=== PATIENT | female | born 1975 | race Caucasian/White ===

== ENCOUNTER → 2017-08-04 10:23 | Outpatient (CLI) | payer SELFPAY | PROVIDERS: Family Provider Internal Medicine Nephrology; PCP Internal Medicine Nephrology; Visit Provider Internal Medicine Nephrology | DX: R05 Cough (principal) ==

== ENCOUNTER → 2018-08-06 10:30 | Outpatient (CLI) | payer OTHER, MEDICARE, SELFPAY | PROVIDERS: Family Provider Student in an Organized Health Care Education/Training Program; PCP Student in an Organized Health Care Education/Training Program; Referring Provider Obstetrics & Gynecology; Visit Provider Obstetrics & Gynecology | DX: Z01.818 Encounter for other preprocedural examination (principal) ==

== ENCOUNTER 2018-08-30 08:07 | Day surgery (SDC) | payer OTHER, MEDICARE, SELFPAY ==
[2018-08-30] VITALS (7 sets, daily range): BP systolic 126–151; BP diastolic 68–116; PULSE 63–84; RESP 14–16; TEMP 36.1–36.4; O2SAT 95–100; BMI 37.7
[2018-08-30 08:45] LABS: Internal QC Validated? YES +Cl - CLEAR BKGD; Pregnancy, Urine Negative Negative
[2018-08-30 08:53] LABS: Hematocrit 38.8 % (37-47); Hemoglobin 12.2 g/dl (12.0-15.0); Mean Corp Hgb Conc 31.4 g/gl (32-36); Mean Corpuscular Hgb 29.9 pg (27.0-32.0); Mean Corpuscular Volume 95.1 fL (81-99); Mean Platelet Vol. 10.9 fl (6.2-12.0); Platelet Count 281 K/mm3 (150-450); RBC Distribution Width CV 13.1 % (11.6-14.6); Red Blood Count 4.08 M/mm3 (4.2-5.4); White Blood Count 5.1 K/mm3 (4.4-11.0)
[2018-08-30 08:55] LABS: Scan Indicated on CBC? Y/N NO
[2018-08-30 09:04] LABS: Creatinine, Serum 1.14 mg/dL (0.55-1.02); EST Glomerular Filtration Rate 55 mL/min (>60); Est Glom Filt Rate - Afr Amer 67 mL/min (>60); Estimated Creatinine Clearance 61.88 ml/min
--- NOTE | 2018-08-30 09:45 | EMB_PTH ---
PATIENT: BROOK CAVAZOS LOC: [facility] [place][id number] AGE/SX: 43/F ROOM: RE08/30/[address]: Dr. Celina Johnson DO : 1975 BED: DIS: 08/30/2018 SPEC #: [id number] RECD: 08/30/18 12:24 STATUS: MICHELLE VIDYA #: [id number] ERMELINDA: 08/30/18 09:[address]: Celina Johnson DEPT: SURGICAL PATHOLOGY RECD BY: Kevyn Cox ENTERED: 08/30/18 13:31 SP TYPE: ENDOM BX/C GALI DR: Dr. Anthony Obregon DO Tissues: A - Endometrium, NOS B - Uterus, NOS Procedures: Surgery Specimen Level IV HEADER OPERATION: Hysteroscopy, dilation and curettage, Mirena IUD placement PRE-OP DIAGNOSIS: Abnormal uterine bleeding TISSUE SUBMITTED: A - Endometrial curettings, B - Uterine polyp MICROSCOPIC DIAGNOSIS A. Endometrium, curettings: Polypoid fragments of disordered endometrium. B. Uterine polyp: Polypoid fragments of disordered endometrium. AM:jet 08/31/18 MICROSCOPIC DESCRIPTION Slides are reviewed. GROSS DESCRIPTION A - Received in fixative is one container labeled with the patient's name and designated endometrial curettings. The specimen consists of multiple fragments of pink hemorrhagic soft tissue that in aggregate measure 2.5 x 1 x 0.1 cm. The specimen is totally submitted in one cassette. B - Received in fixative is one container labeled with the patient's name and designated uterine polyp. The specimen consists of multiple fragments of dominguez-pink to hemorrhagic soft tissue that in aggregate measure 3 x 2.5 x 0.3 cm. The entire specimen is submitted in one cassette. / SJ:jet 08/30/18 TC:5 [facility]: [id number] x2
--- NOTE | 2018-08-30 12:06 | PCM.OPRPT ---
Problem List (1) Abnormal uterine bleeding (AUB) Status: Acute (2) Endometrial polyp Status: Acute Report of Operation Date of Procedure: 08/30/18 Pre-Operative Diagnosis: AUB, stenotic cervix Post-Operative Diagnosis: AUB, endometrial polyp Surgery/Procedure Performed:: Hysteroscopy, polypectomy using Symphion, D&C, Mirena IUD placement Description of Surgical Findings:: Uterine cavity with a small polyp noted on the posterior wall of the uterus near the fundus. Otherwise a normal cavity with thin appearing endometrium. Bilateral tubal ostia were visualized. No descent of uterus and cervix Type of Anesthesia:: MAC Specimen's removed: Endometrial curettings and an endometrial polyp Estimated Blood Loss (mL): < 10 cc Description of Procedure: The patient was taken to the operating room where she was prepped and draped in the usual sterile fashion under MAC anesthesia. After bimanual examination, the cervix was exposed with a weighted vaginal speculum and the anterior lip of the cervix grasped with a single tooth tenaculum. The uterus was sounded to a depth of 12 cm. The endocervical canal was then progressively dilated to accommodate the hysteroscope. The hysteroscope was then introduced into the uterine cavity using sterile saline solution as a distending media. The endometrial cavity was distended with fluids and the cavity visualized. A small polyp was noted. The coronal areas were visualized bilaterally with corresponding tubal ostia. The endometrium appeared thin. The hysteroscope was removed and exchanged for a Symphion hysteroscope. Using the Symphion device, the polyp was removed and a D&C was performed. The Symphion hysteroscope was then removed. A sharp curettage was then performed for a minimal amount of tissue. All instruments were removed from the vaginal The patient was sent to recovery room in good condition. - Complications None - Admit VTE Documentation VTE Present on Admission: No VTE Mechan Device Prophylaxis: SCD's
--- NOTE | 2018-08-30 12:07 | DCINST_ITS ---
Discharge Diet: No Restrictions Discharge Activity: Return to Normal Activity May resume sexual activity in: 1-2 weeks Weight Bearing Status: Full weight bearing Lifting Restrictions: None Call your doctor if you observe: Fever of 101 or Higher, Inability to urinate, Inability to have a bowel movement, Using more than one pad per hour, Shortness of breath, Dizziness, Fainting spells, Chest pain, Increased palpitations (irregular heartbeat), Calf discomfort, Uncontrolled pain Cleanse incision/area with: Soap & Water Allergies/Adverse Reactions: Allergies ketorolac [From Toradol] Allergy (Mild, Verified 08/28/18 08:40) NSAIDS (Non-Steroidal Anti-Inflamma Allergy (Mild, Verified 08/28/18 08:40) Medications to take at Discharge Biotin 1,000 mcg PO DAILY 07/09/18 Folic Acid/B Cmplx C/Rice Bran [Vitamin B-Complex & C Caplet] 1 each PO DAILY 07/09/18 Mycophenolate Mofetil [Cellcept] 750 mg PO BID 07/09/18 Prednisone 5 mg PO DAILY 07/09/18 Tacrolimus 5 mg PO BID 07/09/18 Ketoconazole [Nizoral] 100 mg PO DAILY 08/28/18 Primary Care Physician: Anthony Obregon DO [Primary Care Provider] - Test Results: Test results from this visit will be discussed in further detail at your follow- up appointment, if applicable. Please Follow Up With: Celina Johnson DO When: 1-2 weeks
[2018-08-30] MEDS: Acetaminophen 325 MG Tablet 650 MG PO (13:12)
== END 2018-08-30 13:56 | disposition home or self-care (01) ==
LOC: SDC 08:08 → AC 08:11
PROVIDERS: Family Provider Student in an Organized Health Care Education/Training Program; PCP Student in an Organized Health Care Education/Training Program; Referring Provider Obstetrics & Gynecology; Visit Provider Obstetrics & Gynecology
PROC: 0UDB8ZZ Extraction of Endometrium, Via Natural or Artificial Opening Endoscopic (ICD-10-PCS; CPT 58558; principal; 2018-08-30 09:35)
DX: N93.9 Abnormal uterine and vaginal bleeding, unspecified (principal); N92.1 Excessive and frequent menstruation with irregular cycle; N84.0 Polyp of corpus uteri; N88.2 Stricture and stenosis of cervix uteri; K21.9 Gastro-esophageal reflux disease without esophagitis; N18.4 Chronic kidney disease, stage 4 (severe); I12.9 Hypertensive chronic kidney disease with stage 1 through stage 4 chronic kidney disease, or unspecified chronic kidney disease; Z94.0 Kidney transplant status; Z79.52 Long term (current) use of systemic steroids
CPT/HCPCS: 58300; 58558; 36415; 81025; 82565; 85027; 86850; 86900; 88305; J7120; J2405

== ENCOUNTER 2020-10-27 15:01 | Emergency (ER) | payer MEDICARE, OTHER, SELFPAY ==
[2018-08-30 08:43] VITALS: BMI 37.7
[2020-10-27] VITALS (11 sets, daily range): BP systolic 97–131; BP diastolic 61–68; PULSE 61–104; RESP 15–24; TEMP 36.6–37.6; O2SAT 93–98; BMI 32.3
--- NOTE | 2020-10-27 15:14 | EKG12_ITS ---
Test Reason : Blood Pressure : / mmHG Vent. Rate : 101 BPM Atrial Rate : 101 BPM P-R Int : 132 ms QRS Dur : 086 ms QT Int : 322 ms P-R-T Axes : 070 -68 072 degrees QTc Int : 417 ms Sinus tachycardia Biatrial enlargement Left axis deviation Pulmonary disease pattern Abnormal ECG Confirmed by ANTOINETTE ISSA, PAVEL ([id number]), department editor BRYON CRANE ([id number]) on 10/30/2020 11:33:17 A M Referred By: BARI Confirmed By:YASMINE CURRY MD
--- NOTE | 2020-10-27 15:24 | EX.ED.DYSGE1 ---
HPI History of Present Illness Chief Complaint: Complaint Narrative Narrative: 45-year-old female presents with generalized weakness. States that yesterday evening she began feeling generalized weakness. Was diagnosed with a UTI by her primary care physician. They called in antibiotics which she has had 1 dose of. Patient had a kidney transplant at the age of 14 secondary to what sounds to be ureteral reflux. [facility] Medical History (Updated 10/27/20 @ 20:[address] Alpesh Tubbs DO) Chronic kidney disease Chronic renal failure syndrome Chronic renal insufficiency, stage IV (severe) Cough Hypertension Menorrhagia Obstipation Overweight Vitamin D deficiency Home Medications FA-B cmp,C-rice bran-ruel hips [Vitamin B-Complex & C Caplet] 1 ea PO DAILY 07/09/18 [History Last Taken Unknown] biotin 1,000 mcg PO DAILY 07/09/18 [History Last Taken Unknown] mycophenolate mofetil 750 mg PO BID 07/09/18 [History Last Taken 08/30/18 07:50 750 MG] prednisone 5 mg PO DAILY 07/09/18 [History Last Taken 08/30/18 07:50 5 MG] tacrolimus 5 mg PO BID 07/09/18 [History Last Taken 08/30/18 07:50 5 MG] ketoconazole 100 mg PO DAILY 08/28/18 [History Last Taken 08/30/18 07:50 100 MG] Allergy/AdvReac Type Severity Reaction Status Date / Time ketorolac [From Toradol] Allergy Mild Verified 10/27/20 15:05 NSAIDS (Non-Steroidal Allergy Mild Verified 10/27/20 15:05 Anti-Inflamma Family History (Updated 10/11/17 @ 13:23 by Doris Lobo) Grandmother Diabetes Grandfather Diabetes Father Cancer Cancer Mother COPD (chronic obstructive pulmonary disease) Surgical History History of 3 sections history of fistula placement Social History (Updated 10/11/17 @ 13:[address] Huan Verduzco DO) Smoking Status: Never smoker second hand exposure: No alcohol intake: current alcohol intake frequency: holidays/special occasions only substance use type: does not use caffeine: Yes what type of physical activity do you participate in: walking frequency: 1-2 times per week EXAM Physical Exam Const Vital Signs: 10/27/20 15:02 10/27/20 15:04 10/27/20 15:14 Temperature 98.5 F 98.5 F Temperature Source Temporal Temporal Pulse Rate 104 H 104 H 85 Respiratory Rate 15 15 24 H Respiratory Effort Blood Pressure 131/68 H 131/68 H Blood Pressure Mean 89 89 Pulse Ox 97 97 98 Oxygen Delivery Method Room Air Room Air Room Air 10/27/20 15:25 10/27/20 15:47 10/27/20 15:49 Temperature 99.5 F H Temperature Source Oral Pulse Rate Respiratory Rate Respiratory Effort Normal Non-Labored Blood Pressure Blood Pressure Mean Pulse Ox 98 Oxygen Delivery Method Room Air 10/27/20 16:04 10/27/20 16:14 10/27/20 17:05 Temperature 99.7 F H 99.7 F H 99.0 F Temperature Source Oral Oral Oral Pulse Rate 84 84 72 Respiratory Rate 22 H 19 H 16 Respiratory Effort Blood Pressure 97/63 97/63 124/61 H Blood Pressure Mean 74 74 82 Pulse Ox 95 95 93 Oxygen Delivery Method Room Air Room Air Room Air 10/27/20 18:00 10/27/20 19:04 10/27/20 21:00 Temperature 98.7 F 97.8 F Temperature Source Oral Temporal Pulse Rate 98 62 72 Respiratory Rate 18 16 16 Respiratory Effort Blood Pressure 108/62 118/66 110/68 Blood Pressure Mean 77 83 Pulse Ox 98 94 98 Oxygen Delivery Method Room Air Room Air MDM MDM MDM Narrative Medical decision making narrative: Patient appears well and nontoxic. Initially tachycardic and afebrile. Normotensive. Urine shows leukocytes without nitrites. 12,000 leukocytosis but otherwise lab work within normal limits and a creatinine which is at her baseline. Patient was given normal saline, Tylenol, Zofran. Feeling much improved. Chest x-ray interpreted by myself shows no evidence of infiltrate or cardiomegaly. Radiology concurs. CT without contrast was done given her history of transplant which is also negative. Spoke with Dr. Hernandez, transplant extractor operator solvent process at [facility] who is on-call for the patient's doctor. Extensive discussion was had about the patient if she feels that she is stable for discharge and should continue her antibiotic therapy. I did advise that she has any documented fevers at home and is not feeling improved to return for reevaluation. Patient is agreeable with this plan and discharged home in stable condition. Lab Data Attestation: I reviewed the patient's lab results. Labs: Laboratory Results - last 24 hr 10/27/20 10/27/20 10/27/20 15:45 15:50 15:50 WBC 12.1 H RBC 5.10 Hgb 15.2 H Hct 47.6 H MCV 93.3 MCH 29.8 MCHC 31.9 L RDW Std Deviation 43.3 RDW Coeff of Al 12.5 Plt Count TNP MPV 12.3 H Immature Gran % (Auto) 0.300 Neut % (Auto) 89.6 H Lymph % (Auto) 2.5 L [place] % (Auto) 7.1 Eos % (Auto) 0.2 Baso % (Auto) 0.3 Absolute Neuts (auto) 10.8 H Absolute Lymphs (auto) 0.30 L Nucleated RBC % 0 Differential Comment SCANNED Platelet Estimate ADEQUATE PT Cancelled INR Cancelled APTT Cancelled Sodium Potassium Chloride Carbon Dioxide Anion Gap BUN Creatinine Estim Creat Clear Calc Est GFR (MDRD) Af Amer Est GFR (MDRD) Non-Af BUN/Creatinine Ratio Glucose Lactic Acid Cancelled Calcium Total Bilirubin AST ALT Alkaline Phosphatase Total Protein Albumin Globulin Albumin/Globulin Ratio Urine Color Urine Clarity Urine pH Ur Specific [employer] [place] Urine Protein Urine Glucose (UA) Urine Ketones Urine Occult Blood Urine Nitrite Urine Bilirubin Urine Urobilinogen Ur Leukocyte Esterase Urine RBC Urine WBC Ur Squamous Epith Cells Urine Bacteria Urine Mucus 10/27/20 10/27/20 10/27/20 15:50 16:17 16:24 WBC RBC Hgb Hct MCV MCH MCHC RDW Std Deviation RDW Coeff of [place] Count MPV Immature Gran % (Auto) Neut % (Auto) Lymph % (Auto) [place] % (Auto) Eos % (Auto) Baso % (Auto) Absolute Neuts (auto) Absolute Lymphs (auto) Nucleated RBC % Differential Comment Platelet Estimate PT 13.7 INR 1.1 APTT 29.2 Sodium Cancelled Potassium Cancelled Chloride Cancelled Carbon Dioxide Cancelled Anion Gap Cancelled BUN Cancelled Creatinine Cancelled Estim Creat Clear Calc Cancelled Est GFR (MDRD) Af Amer Cancelled Est GFR (MDRD) Non-Af Cancelled BUN/Creatinine Ratio Cancelled Glucose Cancelled Lactic Acid Calcium Cancelled Total Bilirubin Cancelled AST Cancelled ALT Cancelled Alkaline Phosphatase Cancelled Total Protein Cancelled Albumin Cancelled Globulin Cancelled Albumin/Globulin Ratio Cancelled Urine Color Yellow Urine Clarity Clear Urine pH 7.0 Ur Specific [place] 1.005 Urine Protein 15 H Urine Glucose (UA) Normal Urine Ketones 15 H Urine Occult Blood 10 H Urine Nitrite Negative Urine Bilirubin Negative Urine Urobilinogen Normal Ur Leukocyte Esterase 500 H Urine RBC 0 SEEN Urine WBC 10-25 SEEN Ur Squamous Epith Cells 0-5 SEEN Urine Bacteria 0 SEEN Urine Mucus 0 SEEN 10/27/20 10/27/20 16:24 16:24 WBC RBC Hgb Hct MCV MCH MCHC RDW Std Deviation RDW Coeff of [place] Count MPV Immature Gran % (Auto) Neut % (Auto) Lymph % (Auto) [place] % (Auto) Eos % (Auto) Baso % (Auto) Absolute Neuts (auto) Absolute Lymphs (auto) Nucleated RBC % Differential Comment Platelet Estimate PT INR APTT Sodium 135 L Potassium 4.1 Chloride 108 H Carbon Dioxide 20.0 L Anion Gap 7 BUN 10 Creatinine 1.07 H Estim Creat Clear Calc 62.16 Est GFR (MDRD) Af Amer 71 Est GFR (MDRD) Non-Af 59 L BUN/Creatinine Ratio 9.3 L Glucose 104 Lactic Acid 0.9 Calcium 8.9 Total Bilirubin 0.60 AST 10 L ALT 14 Alkaline Phosphatase 56 Total Protein 6.5 Albumin 3.6 Globulin 2.9 Albumin/Globulin Ratio 1.2 Urine Color Urine Clarity Urine pH Ur Specific [employer] [place] Urine Protein Urine Glucose (UA) Urine Ketones Urine Occult Blood Urine Nitrite Urine Bilirubin Urine Urobilinogen Ur Leukocyte Esterase Urine RBC Urine WBC Ur Squamous Epith Cells Urine Bacteria Urine Mucus Radiography Chest X-Ray - ED: 1 View, Read by ED Physician, Read by Radiologist and Normal Diagnostic Testing: Radiology Impression Chest X-Ray 10/27/20 15:50 IMPRESSION: Normal x-ray examination of the chest. Electronically Signed: Jay Mondragon MD at 16:05 EDT , Service support , Abdomen/Pelvis CT 10/27/20 17:17 IMPRESSION: No definite acute abnormality. Severe bilateral renal atrophy. Grossly normal appearance of right lower quadrant renal transplant. Electronically Signed: Jay Mondragon MD at 18:27 EDT , Service support , Discharge Plan Triage Chief Complaint: Complaint ED Provider: Alpesh Tubsb Dx/Rx/DC Orders Clinical Impression: UTI (urinary tract infection) Instructions: ED Urinary Tract Infections in Women Prescriptions: No Action mycophenolate mofetil 250 MG capsule 750 mg PO BID RF: 0 prednisone 5 MG tablet 5 mg PO DAILY RF: 0 tacrolimus 1 MG capsule 5 mg PO BID RF: 0 FA-B cmp,C-rice bran-ruel hips [B-complex with vitamin C] 1 EACH tablet 1 ea PO DAILY RF: 0 biotin 1,000 MCG Tab.Chew 1,000 mcg PO DAILY RF: 0 ketoconazole 200 MG tablet 100 mg PO DAILY RF: 0 Primary Care Provider: Anthony Obregon Referrals: Anthony Obregon DO [Primary Care Provider] - 1 Day Activity Restrictions/Additional Instructions: Please return if feeling worse. Continue antibiotics. Disposition Disposition: Home, self care Discharge Date/Time: 10/27/20 21:00
[2020-10-27] MEDS: Acetaminophen 500 MG Tablet 1000 MG PO (15:42)
[2020-10-27] MEDS: 0.9% Normal Saline 1,000 ML 999 ML IV (15:42)
[2020-10-27] MEDS: Ondansetron 4 MG/2 ML Vial IV (15:43)
--- NOTE | 2020-10-27 15:49 | ED.RN ---
PT STATED SHE IS NOT SUPPOSED TO TAKE TYLENOL ACCORDING TO HER KIDNEY DOCTOR. DR CANDELARIA MADE AWARE AND HE SAID IT IS OKAY TO GIVE HER TYLENOL AT THIS TIME. TYLENOL GIVEN AT THIS TIME.
--- NOTE | 2020-10-27 15:50 | RAD_ITS ---
STUDY: X-RAY CHEST REASON FOR EXAM: Female, 45 years old. fever TECHNIQUE: Single AP portable view of the chest. COMPARISON: None. FINDINGS: The lungs are clear and expanded. There is no demonstrated pleural abnormality. Normal size heart. Normal mediastinum and beronica. Normal visualized pulmonary arteries. Normal visualized aortic arch and descending thoracic aorta. Normal visualized thoracic spine. Normal visualized ribs, clavicles, and shoulders. There is no demonstrated abnormality of the visualized soft tissue structures of the upper abdomen. RAD/Chest 1 View (Portable) IMPRESSION: Normal x-ray examination of the chest. Electronically Signed: Jay Mondragon MD at 16:05 EDT , Service support ,
[2020-10-27 16:02] LABS: Absolute Neutrophil Count 10.8 X10^3/uL (2.0-7.7); Basophil# 0.04 X10^3/uL; Basophil% 0.3 % (0-1); Eosinophil# 0.03 X10^3/uL; Eosinophils% 0.2 % (0-5); Hematocrit 47.6 % (37-47); Hemoglobin 15.2 g/dL (12.0-15.0); Lymphocyte % 2.5 % (19-41); Mean Corp Hgb Conc 31.9 g/dL (32-36); Mean Corpuscular Hgb 29.8 pg (27.0-32.0); Mean Corpuscular Volume 93.3 fL (81-99); Mean Platelet Vol. 12.3 fl (6.2-12.0); Monocyte# 0.86 X10^3/uL; Monocyte% 7.1 % (0-10); NRBC Flagged by Analyzer 0 % (0-5); Neutrophil # 10.78 X10^3/uL (2.7-7.7); Neutrophil % 89.6 % (47-70); POSITIVE COUNT YES; POSITIVE DIFFERENTIAL YES; RBC Distribution Width CV 12.5 % (11.6-14.6); RBC Distribution Width SD 43.3 fl (35.1-43.9); White Blood Count 12.1 K/mm3 (4.4-11.0)
[2020-10-27 16:23] LABS: Bacteria 0 SEEN /hpf (None Seen); Mucous, Urine 0 SEEN /hpf (<or=2+); Red Blood Cells-Urine 0 SEEN /hpf (0-5)
[2020-10-27 16:23] LABS: Differential Indicated SCAN CRITERIA MET
[2020-10-27 16:31] LABS: Color, Urine Yellow (Yellow); Glucose, Dipstick Normal (Normal); Ketone-Dipstick 15 mg/dl (Negative); Leukocyte Esterase-Dipstick 500 /ul (Negative); Nitrite-Dipstick Negative (Negative); Occult Blood-Urine 10 /ul (Negative); Protein-Dipstick 15 mg/dl (Negative); Specific Gravity, Urine 1.005 (1.002-1.030); Urine Bilirubin Dipstick Negative (Negative); Urine Clarity Clear (Clear); Urine Urobilinogen Normal (Normal)
[2020-10-27 16:37] LABS: Squamous Epithelial Cells - UA 0-5 SEEN /hpf (5-10); White Blood Cells 10-25 SEEN /hpf (0-5)
[2020-10-27 16:45] LABS: International Normalized Ratio 1.1; Prothrombin Time (Protime)PT. 13.7 SECONDS (11.7-14.9)
[2020-10-27 16:46] LABS: ALB/GLOB Ratio 1.2 RATIO (0.9-2.4); AST(SGOT) 10 U/L (15-37); Alanine Aminotransfer ALT/SGPT 14 U/L (13-56); Albumin, Serum 3.6 g/dL (3.2-5.0); Alkaline Phosphatase 56 U/L (45-117); Anion Gap 7 (5-15); BUN 10 mg/dL (7-18); BUN/Creat Ratio 9.3 RATIO (10-20); Calcium,Total 8.9 mg/dL (8.5-10.1); Chloride 108 mmol/L (98-107); Creatinine, Serum 1.07 mg/dL (0.55-1.02); EST Glomerular Filtration Rate 59 mL/min (>60); Est Glom Filt Rate - Afr Amer 71 mL/min (>60); Estimated Creatinine Clearance 62.16 ml/min; Globulin 2.9 g/dL (2.2-4.2); Glucose 104 mg/dL (74-106); Partial Thromboplast Time 29.2 Seconds (24.1-36.2); Potassium 4.1 mmol/L (3.5-5.1); Protein, Total 6.5 g/dL (6.4-8.2); Sodium Level 135 mmol/L (136-145)
[2020-10-27 16:49] LABS: Differential Comment SCANNED; Platelet Estimate ADEQUATE (ADEQ)
[2020-10-27 17:00] LABS: Lactic Acid 0.9 mmol/L (0.4-1.9)
--- NOTE | 2020-10-27 17:17 | CT_ITS ---
STUDY: CT ABDOMEN AND PELVIS WITHOUT CONTRAST REASON FOR EXAM: Female, 45 years old. abdominal pain RADIATION DOSAGE (If Supplied By Facility): CTDIvol = ( 12.73 ) mGy, DLP = ( 693.55 ) mGycm TECHNIQUE: Transaxial images were obtained from the dome of the diaphragm to the symphysis pubis without oral contrast, and without intravenous contrast. Sagittal and coronal images were reconstructed. Individualized dose optimization techniques were used for this CT. COMPARISON: None. FINDINGS: Limited views through the lower chest show subsegmental atelectasis or mild fibrotic changes in both lung bases worse on the left. Small pericardial effusion. Normal liver. Normal gallbladder and extrahepatic biliary system. Normal spleen. Normal pancreas. Normal bilateral adrenal glands. There is very severe bilateral renal atrophy. Evaluation of the GI tract is limited by absence of oral contrast. Cannot exclude stomach wall thickening. No dilated loops of bowel or evidence for obstruction. Cannot exclude segmental thickening of the oliver of the small or large bowel. Cannot exclude enteritis or colitis. Moderate diffuse fecal retention. There has been appendectomy. Normal abdominal aorta. Normal inferior vena cava. Normal retroperitoneum. Normal urinary bladder. Normal visualized uterus. IUD in normal position. Right lower quadrant renal transplant seen measuring approximately 13.7 cm, with normal cortical thickness and no hydronephrosis. Normal abdominal wall. Normal osseous structures. CT/Abdomen/Pelvis without Cont IMPRESSION: No definite acute abnormality. Severe bilateral renal atrophy. Grossly normal appearance of right lower quadrant renal transplant. Electronically Signed: Jay Mondragon MD at 18:27 EDT , Service support ,
== END 2020-10-27 21:00 | disposition home or self-care (01) ==
PROVIDERS: Emergency Provider Emergency Medicine; PCP Student in an Organized Health Care Education/Training Program
DX: N39.0 Urinary tract infection, site not specified (principal); I12.0 Hypertensive chronic kidney disease with stage 5 chronic kidney disease or end stage renal disease; N18.6 End stage renal disease; Z79.1 Long term (current) use of non-steroidal anti-inflammatories (NSAID); Z79.52 Long term (current) use of systemic steroids; Z94.0 Kidney transplant status
CPT/HCPCS: 71045; 74176; 80053; 81001; 83605; 85025; 85610; 85730; 87040; 87086; 87088; 87426; 93005; 96361; 96374; 99283; J7030; A4216; J2405

== ENCOUNTER 2024-05-11 22:39 | Emergency (ER) | payer BC, SELFPAY ==
[2024-05-11 22:39] VITALS: BP 164/90; PULSE 94; RESP 20; TEMP 37; O2SAT 97; BMI 37.0
[2024-05-11] MEDS: Ondansetron 4 MG/2 ML Vial IV (23:40)
[2024-05-11] MEDS: Morphine 4 MG/ML Syringe IV (23:40)
[2024-05-11 23:47] LABS: Absolute Lymphocyte Count 0.61 X10^3/uL (0.83-4.51); Basophil# 0.04 X10^3/uL; Basophil% 0.3 % (0-1); Eosinophil# 0.05 X10^3/uL; Eosinophils% 0.4 % (0-5); Hemoglobin 14.3 g/dL (12.0-15.0); Lymphocyte # 0.61 X10^3/ul (0.83-4.51); Lymphocyte % 5.2 % (19-41); Mean Corp Hgb Conc 31.8 g/dL (32-36); Mean Corpuscular Volume 94.5 fL (81-99); Mean Platelet Vol. 11.1 fl (6.2-12.0); Monocyte# 0.94 X10^3/uL; NRBC Flagged by Analyzer 0 % (0-5); Neutrophil % 85.8 % (47-70); Platelet Count 264 K/mm3 (150-450); RBC Distribution Width CV 13.2 % (11.6-14.6); RBC Distribution Width SD 45.6 fl (35.1-43.9); Red Blood Count 4.76 M/mm3 (4.2-5.4); White Blood Count 11.7 K/mm3 (4.4-11.0)
[2024-05-12 00:12] LABS: ALB/GLOB Ratio 1.3 RATIO (0.9-2.4); AST(SGOT) 7 U/L (15-37); Alanine Aminotransfer ALT/SGPT 15 U/L (13-56); Albumin, Serum 3.8 g/dL (3.2-5.0); Alkaline Phosphatase 73 U/L (45-117); Anion Gap 6 (5-15); BUN 8 mg/dL (7-18); BUN/Creat Ratio 7.8 RATIO (10-20); Calcium,Total 9.7 mg/dL (8.5-10.1); Chloride 110 mmol/L (98-107); Creatinine, Serum 1.02 mg/dL (0.55-1.02); EST Glomerular Filtration Rate 61 mL/min (>60); Est Glom Filt Rate - Afr Amer 74 mL/min (>60); Estimated Creatinine Clearance 84.17 ml/min; Glucose 121 mg/dL (74-106); Lipase 41 U/L (13-75); Potassium 3.7 mmol/L (3.5-5.1); Protein, Total 6.8 g/dL (6.4-8.2); Sodium Level 140 mmol/L (136-145)
[2024-05-12] MEDS: Pantoprazole Sodium 40 MG Tablet PO (00:14)
[2024-05-12 00:25] VITALS: BP 158/91; PULSE 86; RESP 16; TEMP 36.6; O2SAT 96
== END 2024-05-12 00:28 | disposition home or self-care (01) ==
PROVIDERS: Emergency Provider Emergency Medicine; PCP Student in an Organized Health Care Education/Training Program; Visit Provider Emergency Medicine
DX: K29.00 Acute gastritis without bleeding (principal); N18.4 Chronic kidney disease, stage 4 (severe); I12.9 Hypertensive chronic kidney disease with stage 1 through stage 4 chronic kidney disease, or unspecified chronic kidney disease; Z94.0 Kidney transplant status; E55.9 Vitamin D deficiency, unspecified; R05.9 Cough, unspecified; Z79.899 Other long term (current) drug therapy; Z79.52 Long term (current) use of systemic steroids
CPT/HCPCS: 80053; 83690; 85025; 96374; 96375; 99284; J2405